=== PATIENT | male | born 1990 | race Caucasian/White ===

== ENCOUNTER 2017-03-10 23:03 | Emergency (ER) | payer OTHER ==
[2017-03-10] MEDS ORDERED: NEURONTIN800 MG PO (23:12)
[2017-03-10] MEDS ORDERED: MOBIC PO (23:13)
[2017-03-10] MEDS ORDERED: SYNTHROID0.2 MG PO (23:13)
[2017-03-10] MEDS ORDERED: VITAMIN D 22000 UNIT PO (23:13)
[2017-03-10 23:49] LABS: INFLUENZA A NEG (NEG)
[2017-03-10 23:50] LABS: INFLUENZA B NEG (NEG)
== END 2017-03-11 01:08 | disposition home or self-care (01) ==
LOC: SED 23:03
PROVIDERS: Nurse Practitioner
DX: J02.0 Streptococcal pharyngitis (principal); Z79.899 Other long term (current) drug therapy
CPT/HCPCS: 87804; 87880; 96372; 99283; J0561; J1100